=== PATIENT | female | born 1965 | race Caucasian/White ===

== ENCOUNTER → 2016-06-04 | Outpatient (CLI) | payer BC ==
[~2016-06-04] MED LIST: MULT-506 PO
--- NOTE | 2016-06-04 16:41 | DIAGNOSTIC IMAGING REPORT ---
RIGHT WRIST MIN 3 VIEWS ROUTINE CLINICAL HISTORY: PAIN IN RIGHT WRIST Right trauma COMPARISON: None. DISCUSSION: Moderate generalized degenerative change. No acute bony abnormality. Mild soft tissue edema. IMPRESSION: Degenerative change. No acute bony abnormality. Electronically signed by: Guanakito Mary M.D. 06/04/2016 4:40 PM Dictated Date/Time: 06/04/2016 4:38 PM
== END | disposition home or self-care (01) ==
LOC: C.RAD 16:02
PROVIDERS: ATTEND Family Medicine
DX: M25.531 Pain in right wrist (principal)

== ENCOUNTER → 2017-02-01 | Outpatient (CLI) | payer BC | END | disposition home or self-care (01) | LOC: C.PAPS 16:10 | PROVIDERS: ATTEND Physician Assistant | DX: Z01.419 Encounter for gynecological examination (general) (routine) without abnormal findings (principal) ==